=== PATIENT | male | born 1990 | race American Indian/Alaskan Native ===

== ENCOUNTER 2021-12-18 13:51 | Emergency (ER) | payer OTHER ==
[2021-12-18 13:59] VITALS: BP 113/70; PULSE 97; RESP 16; TEMP 98.4
--- NOTE | 2021-12-18 14:14 | ED ---
General Adult HPI - General Chief complaint: Recheck/Abnormal Lab/Rx Stated complaint: heat exposure Time Seen by Provider: 12/18/21 14:09 Source: patient, RN notes reviewed, old records reviewed Mode of arrival: ambulatory Limitations: no limitations - History of Present Illness Initial comments: 31-year-old male presenting with chief complaint of feeling hot. He states he was outside walking around is 90 out with high humidity. He states that he had had something similar drink earlier. Denies nausea. Denies chest pain. Denies abdominal pain. Denies any pain complaints. Denies fever. Denies recent illness. Denies suicidal or homicidal ideation. Denies drugs or alcohol - Related Data Allergies Allergy/AdvReac Type Severity Reaction Status Date / Time No Known Allergies Allergy Verified 12/18/21 13:59 Review of Systems ROS Statement: Those systems with pertinent positive or pertinent negative responses have been documented in the HPI. ROS Other: All systems not noted in ROS Statement are negative. Past Medical History Past Medical History: No Reported History History of Any Multi-Drug Resistant Organisms: None Reported Past Surgical History: No Surgical Hx Reported Past Psychological History: Anxiety Smoking Status: Current every day smoker Past Alcohol Use History: Occasional Past Drug Use History: None Reported General Exam Limitations: no limitations General appearance: alert, in no apparent distress Head exam: Present: atraumatic, normocephalic Eye exam: Present: normal appearance, PERRL ENT exam: Present: mucous membranes moist Respiratory exam: Present: normal lung sounds bilaterally. Absent: respiratory distress, wheezes Cardiovascular Exam: Present: regular rate, normal rhythm GI/Abdominal exam: Present: soft. Absent: distended, tenderness Extremities exam: Present: normal inspection, normal capillary refill Neurological exam: Present: alert, oriented X3, CN II-XII intact. Absent: motor sensory deficit Psychiatric exam: Present: flat affect. Absent: homicidal ideation, suicidal ideation Skin exam: Present: warm, dry, intact. Absent: cyanosis, diaphoretic Course Vital Signs 12/18/21 13:55 Temperature 98.4 F Pulse Rate 97 Respiratory 16 Rate Blood Pressure 113/70 O2 Sat by Pulse 98 Oximetry Medical Decision Making - Medical Decision Making Well-appearing 31-year-old male. He states with increased questioning that he does have a mental health history has been off his meds for about 11 months. He has a very flat affect but is not suicidal or homicidal. He knows where he is on the date. He's given 2 sandwiches, 2 glasses of water and is given ou tpatient referral to [facility]. Given strict return parameters. Patient alert and oriented 3. Disposition Clinical Impression: Adverse effect of heat Disposition: HOME SELF-CARE Condition: Fair Instructions (If sedation given, give patient instructions): Liquids and Hydration for Athletes (ED) Additional Instructions: Please return to the emergency department with worsening or changing symptoms. Please follow up with her primary care physician and [facility]. Is patient prescribed a controlled substance at d/c from ED?: No Referrals: Nonstaff,Physician [Primary Care Provider] - 1-2 days Gray Cid MD [STAFF PHYSICIAN] - 1-2 days Time of Disposition: 14:23
== END 2021-12-18 15:08 | disposition home or self-care (01) ==
LOC: EC 13:51
DX: T67.9XXA Effect of heat and light, unspecified, initial encounter (principal); F41.9 Anxiety disorder, unspecified; F17.200 Nicotine dependence, unspecified, uncomplicated; X30.XXXA Exposure to excessive natural heat, initial encounter
CPT/HCPCS: 99284